=== PATIENT | male | born 1955 | race Caucasian/White ===

== ENCOUNTER 2017-01-25 14:21 | Emergency (ER) | payer BC ==
[~2017-01-25] VITALS: Ht 182.9 cm; Wt 118.2 kg
[2017-01-25] MEDS ORDERED: FISH1000 PO (14:39)
[2017-01-25] MEDS ORDERED: SIMV80TA PO (14:39)
[2017-01-25] MEDS ORDERED: METF500T13 PO (14:39)
[2017-01-25] MEDS ORDERED: ASPI325T PO (14:39)
[2017-01-25] MEDS ORDERED: LOSA100T36 PO (14:39)
[2017-01-25] MEDS ORDERED: ATEN25TA PO (14:39)
[2017-01-25] MEDS ORDERED: VITA100066 PO (14:39)
[2017-01-25] MEDS ORDERED: GLIP1TAB49 PO (14:39)
[2017-01-25] MEDS ORDERED: OMEP40CA2 PO (14:39)
[2017-01-25] MEDS ORDERED: MORPHINE 4 MG/ML 1ML SYRINGE IV ONE (15:00)
[2017-01-25 15:05] LABS: BASO # 0.1 10^3/uL (0.0-0.2); BASO % 1.2 % (0.0-1.0); EOS # 0.1 10^3/uL (0.0-0.50); EOS % 0.7 % (0.0-3.0); IMMATURE GRANULOCYTE % 0.1 % (0-0); LYMPH # 2.1 10^3/uL (1.5-4.5); LYMPH % 30.3 % (24.0-44.0); MEAN CORPUSCULAR HEMOGLOBIN 29.8 pg (27.0-33.0); MEAN CORPUSCULAR HGB CONC 34.4 g/dl (32.0-36.5); MEAN CORPUSCULAR VOLUME 86.6 fl (80.0-96.0); MONO # 0.5 10^3/uL (0.0-0.8); MONO % 7.8 % (0.0-5.0); NEUTROPHILS # 4.1 10^3/uL (1.8-7.7); NEUTROPHILS % 59.9 % (36.0-66.0); PLATELET COUNT, AUTOMATED 255 10^3/uL (150-450); RED CELL DISTRIBUTION WIDTH 12.2 % (11.5-14.5); WHITE BLOOD COUNT 6.8 10^3/uL (4.0-10.0)
[2017-01-25 15:15] LABS: INR 1.01
--- NOTE | 2017-01-25 15:26 | REP ---
Chest x-ray PA and lateral 01/25/2017. Clinical history: Chest pain. Findings: Two views performed with no previous studies of the chest. Findings: Lungs are well inflated without infiltrate, effusion, atelectasis or mass. The heart, mediastinal and hilar contours are normal. The aorta and airway intact. There is no pneumothorax, mediastinum or other acute finding. Bony thorax without compression deformity . No free air. Impression: 1. No acute cardiopulmonary disease, negative for chest wall, lung, mediastinal, hilar or cardiac silhouette abnormalities. No free air. Signed by Carter Ocampo MD 01/26/2017 08:13 P
[2017-01-25 15:28] LABS: ALBUMIN 3.7 GM/DL (3.2-5.2); ALBUMIN/GLOBULIN RATIO 0.97 (1.00-1.93); ALKALINE PHOSPHATASE 57 U/L (45-117); ALT/SGPT 37 U/L (12-78); ANION GAP 8 MEQ/L (8-16); AST/SGOT 23 U/L (7-37); BILIRUBIN,DIRECT 0.1 MG/DL (0.0-0.2); BILIRUBIN,TOTAL 0.6 MG/DL (0.2-1.0); BLOOD UREA NITROGEN 16 MG/DL (7-18); CALCIUM LEVEL 8.8 MG/DL (8.8-10.2); CARBON DIOXIDE LEVEL 28 MEQ/L (21-32); CHLORIDE LEVEL 101 MEQ/L (98-107); GLOMERULAR FILTRATION RATE > 60.0 (>49); GLUCOSE, FASTING 127 MG/DL (80-110); POTASSIUM SERUM 3.5 MEQ/L (3.5-5.1); SODIUM LEVEL 137 MEQ/L (136-145); TOTAL PROTEIN 7.5 GM/DL (6.4-8.2)
[2017-01-25] MEDS ORDERED: NS 1,000 ML IV ONE (16:00)
--- NOTE | 2017-01-25 16:41 | REP ---
LIMITED ABDOMINAL ULTRASOUND: 01/25/2017. Clinical history: Right upper quadrant pain. Evaluate for cholecystitis or other. Findings: Sonographic evaluation shows the liver homogeneous in echotexture but diffusely hyperechoic throughout representing diffuse fatty infiltration. There is some focal fat sparing adjacent the gallbladder fossa which is a typical location for that phenomenon with the far field limited in its evaluation. The lateral segment left hepatic lobe inferiorly is heterogeneous hyperechoic tissue that may be hemangioma 5.4 x 4.8 cm. There is much less echogenic on the decubitus projection. There is no biliary dilatation nor adjacent ascites. Gallbladder has a wall thickness of 2.2 mm. Small echogenic stones or gravel in the dependent gallbladder. There is no sonographic Jones's sign or pericholecystic fluid. No mass. Common duct 6.6 mm, normal for age. No filling defect visible. Pancreas is not seen due to extensive gas shadowing. Right kidney is 12.8 x 6.3 x 5.7 cm without hydronephrosis. Impression: 1. Cholelithiasis with small dependent calculi or gravel with normal wall thickness. No pericholecystic fluid, mass or sonographic Jones sign. 2. Common duct 6.6 mm. No dilatation or stone upper limits normal for this size. 3. Diffuse fatty infiltration of the liver with focal fat sparing near the gallbladder fossa and one area of slightly hyperechoic tissue 5.4 x 4.8 cm in the left hepatic lobe that may reflect a hemangioma. It is less notable on the decubitus view. 4. Right kidney 12.8 x 5.7 x 6.3 cm without stone or hydronephrosis. Pancreas obscured. Signed by Carter Ocampo MD 01/26/2017 08:15 P
[2017-01-25 21:45] VITALS: BP 143/78
--- NOTE | 2017-01-26 12:22 | ECGEPIP ---
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
--- NOTE | 2017-01-26 12:29 | ECGEPIP ---
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
--- NOTE | 2017-01-27 08:03 | ED PDOC ---
Post-Departure Follow-Up radiology report faxed to Jennifer Felix MD Jan 27, 2017 08:03
== END 2017-01-25 22:03 | disposition home or self-care (01) ==
LOC: EDSEX 14:21 → EDBD 14:21 → M ED 14:21
DX: R10.13 Epigastric pain (principal); K80.20 Calculus of gallbladder without cholecystitis without obstruction

== ENCOUNTER → 2020-09-29 | Outpatient (CLI) | payer OTHER ==
[~2020-09-29] MED LIST: ASPI-1 PO; ATEN25TA PO; FISH1000 PO; GLIP5TAB20 PO; LOSA100T50 PO; METF500T13 PO; OMEP40CA4 PO; SIMV80TA13 PO; VITA100066 PO
--- NOTE | 2020-09-29 14:35 | REP ---
INDICATION: UNSPECIFIED SPRAIN OF RIGHT HIP, INITIAL ENCOUNTER. COMPARISON: 06/10/2014. TECHNIQUE: There are two views. FINDINGS: There is no fracture or dislocation. Mineralization is normal. The joint space is unremarkable. There is a rectangular shaped metallic density in the soft tissues, possibly a foreign body, unchanged from the prior study. IMPRESSION: Possible soft tissue foreign body as described. Otherwise, negative right hip. <Electronically signed by Noel Ernst > 09/29/20 [id number]
== END ==
LOC: M RAD 12:54 → M LAB 12:54
PROVIDERS: ATTEND Physician Assistant
DX: S73.101A Unspecified sprain of right hip, initial encounter (principal); X58.XXXA Exposure to other specified factors, initial encounter; Y92.89 Other specified places as the place of occurrence of the external cause

== ENCOUNTER → 2023-09-21 | Outpatient (CLI) | payer OTHER ==
[~2023-09-21] MED LIST changes: +LOSA100T46 PO; -LOSA100T50 PO
[2023-09-21 15:16] LABS: HEMATOCRIT 43.9 % (42.0-52.0); HEMOGLOBIN 15.1 g/dl (13.5-17.5); MEAN CORPUSCULAR HEMOGLOBIN 30.1 pg (27.0-33.0); MEAN CORPUSCULAR HGB CONC 34.4 g/dl (32.0-36.5); MEAN CORPUSCULAR VOLUME 87.6 fl (80.0-96.0); PLATELET COUNT, AUTOMATED 251 10^3/uL (150-450); RED BLOOD COUNT 5.01 10^6/uL (4.30-6.10); WHITE BLOOD COUNT 8.2 10^3/uL (4.0-10.0)
[2023-09-21 15:36] LABS: ALBUMIN 3.7 G/DL (3.2-5.2); BLOOD UREA NITROGEN 14 MG/DL (9-23); CALCIUM LEVEL 9.6 MG/DL (8.3-10.6); CARBON DIOXIDE LEVEL 26 MMOL/L (20-31); CHLORIDE LEVEL 104 MMOL/L (98-107); CREATININE FOR GFR 0.85 MG/DL (0.70-1.30); GLOMERULAR FILTRATION RATE > 60.0 (>49); GLUCOSE, FASTING 160 MG/DL (74-106); PHOSPHORUS LEVEL 3.1 MG/DL (2.4-5.1); POTASSIUM SERUM 3.7 MMOL/L (3.5-5.1); SODIUM LEVEL 138 MMOL/L (136-145)
== END ==
LOC: M LAB 14:13
PROVIDERS: ATTEND Internal Medicine Cardiovascular Disease
DX: R07.9 Chest pain, unspecified (principal); I10 Essential (primary) hypertension

== ENCOUNTER → 2024-03-10 | Outpatient (CLI) | payer MEDICARE, OTHER | LOC: M EKG 10:58 | PROVIDERS: ATTEND Internal Medicine Cardiovascular Disease | DX: I49.1 Atrial premature depolarization (principal) ==

== ENCOUNTER → 2024-03-27 | Outpatient (CLI) | payer OTHER, MEDICARE | LOC: M CARPUL 08:10 | PROVIDERS: ATTEND Internal Medicine Cardiovascular Disease | DX: I49.1 Atrial premature depolarization (principal); I11.9 Hypertensive heart disease without heart failure; I27.81 Cor pulmonale (chronic) ==

== ENCOUNTER → 2024-07-03 | Outpatient (CLI) | payer OTHER, MEDICARE ==
[~2024-07-03] MED LIST changes: +GLIP-318 PO; -GLIP5TAB20 PO
[2024-07-03 18:27] LABS: HEMATOCRIT 41.6 % (42.0-52.0); MEAN CORPUSCULAR HEMOGLOBIN 29.6 pg (27.0-33.0); MEAN CORPUSCULAR HGB CONC 33.7 g/dl (32.0-36.5); MEAN CORPUSCULAR VOLUME 87.9 fl (80.0-96.0); PLATELET COUNT, AUTOMATED 220 10^3/uL (150-450); RED BLOOD COUNT 4.73 10^6/uL (4.30-6.10); WHITE BLOOD COUNT 6.9 10^3/uL (4.0-10.0)
[2024-07-03 18:49] LABS: ALBUMIN 3.7 G/DL (3.2-5.2); ALKALINE PHOSPHATASE 82 U/L (40-129); ALT/SGPT 26 U/L (7.0-40); AST/SGOT 14 U/L (<34); BILIRUBIN,TOTAL 0.6 MG/DL (0.3-1.2); BLOOD UREA NITROGEN 15 MG/DL (9-23); CALCIUM LEVEL 9.5 MG/DL (8.3-10.6); CARBON DIOXIDE LEVEL 28 MMOL/L (20-31); CHLORIDE LEVEL 107 MMOL/L (98-107); CREATININE FOR GFR 0.92 MG/DL (0.70-1.30); GLOMERULAR FILTRATION RATE > 90.0 (>49); GLUCOSE, FASTING 162 MG/DL (74-106); POTASSIUM SERUM 3.8 MMOL/L (3.5-5.1); SODIUM LEVEL 143 MMOL/L (136-145); TOTAL PROTEIN 6.6 G/DL (5.7-8.2)
[2024-07-03 18:52] LABS: THYROID STIMULATING HORMONE 1.655 uIU/ML (0.55-4.78)
== END ==
LOC: M WUC 15:24
PROVIDERS: ATTEND Internal Medicine Cardiovascular Disease
DX: I49.1 Atrial premature depolarization (principal); I25.10 Atherosclerotic heart disease of native coronary artery without angina pectoris; I11.9 Hypertensive heart disease without heart failure